=== PATIENT | female | born 2000 | race Caucasian/White ===

== ENCOUNTER 2022-01-31 08:41 | Inpatient (IN) | payer MEDICAID, OTHER ==
[2022-01-31] VITALS (26 sets, daily range): BP systolic 120–161; BP diastolic 60–92
[~2022-01-31] VITALS: Ht 157.5 cm; Wt 56.8 kg
[2022-01-31] MEDS ORDERED: PNV-9 PO (09:52)
--- NOTE | 2022-01-31 11:51 | Diagnostic Imaging Report ---
INDICATION: Evaluate position. TECHNIQUE: Multiple real-time grayscale images were obtained over the gravid uterus. COMPARISON: None FINDINGS: There is a single live fetus in a cephalic presentation. heart rate was recorded at 134 bpm. Placenta is fundal. Amniotic fluid index is 7.6 cm. Biometrical measurements are as follows: Biparietal 9.01 cm, age 36 weeks 4 days. Head circumference 30.98 cm, age 34 weeks 5 days. Abdominal circumference 34.65 cm, age 38 weeks 4 days. Femur length 6.49 cm, age 33 weeks 4 days. Sonographic estimate age: 35 weeks 6 days. Sonographic estimated date of delivery: 03/01/2022. Estimated Weight: 3011 gm (+/- 440 gm). LMP percentile: --%. heart rate: 134 beats per minute. number: 1 of 1. IMPRESSION: Single live IUP approximately 36 weeks gestational age. Fetus is cephalic. Dictated by: Dictated on workstation # [id number]
--- NOTE | 2022-01-31 14:00 | History & Physical ---
History and Physical Date Seen by Provider: Jan 31, 2022 Time Seen by Provider: 08:15 Patient is a 21-year-old at least 2 para 1 female who presents in advanced labor writhing in pain with history of care apparently in [place]. Patient refuses cervical exam. Patient refuses IV. Patient refuses any lab work. Patient refuses visual inspection of the perineum or evidence of imminent delivery. I asked the physician on-call and with her having no local provider I was called to see the patient. Patient was in room 20 on the labor floor. She was in the bed obviously uncomfortable with contractions. She refused my care. She refused exam. She refused pain medication.. She preferred simple observation to any type of management. She is aware that I cannot be of much assistance without being able to assess her status or progress in labor. She understood that an emergency we would be handicapped by not having IV access and she was okay with that. We allowed her to labor. Allergies are to ibuprofen and latex Medications are unknown as patient would not state Medical social and surgical history is are unknown although we are attempting to obtain her records from [place] Social history patient is accompanied on this visit by a male partner Family history is unknown Physical exam is deferred. Patient generally is a thin but well-developed white female she is in acute distress with contractions. No other exam was allowed by the patient Assessment and plan My best assessment patient was at or near 40 weeks gestation. Apparently this was based on a 30-week ultrasound. Patient had planned delivery in [place] however she was in this area whenever she experienced acute labor. Is uncertain whether she experienced rupture membranes or not. Report is that she was seen last evening at [facility] with complaint of rupture membranes. Apparently their assessment there was negative however patient did not allow them to check her cervix or do any other particular work-up. Our plan was to observe be available for supportive care be available for [facility] care and hope for good outcome for the patient 40-week in labor Allergies and Home Medications Allergies Coded Allergies: ibuprofen (Verified Allergy, Unknown, 01/31/22) latex (Verified Allergy, Unknown, 01/31/22) Patient Home Medication List Home Medication List Reviewed: No Pnv 119/Iron Fum/Folic Acid ( 19 Tablet) 29 Mg Iron-1 Mg Tablet, 1 EACH PO DAILY, (Reported) Entered as Reported by: Donna Mckeon on 01/31/22 0952 Last Action: New Order CHARLI QUINN MD Jan 31, 2022 14:00
--- NOTE | 2022-01-31 14:05 | Discharge Inst-Surgical ---
Discharge Inst-Surgical Depart Medication/Instructions New, Converted or Re-Newed RX: Other Consults/Follow Up Orders & Referrals Follow Up Appt: Call to make follow up appt. for patient in 6 weeks with PCP Activity Per routine post vaginal delivery instructions. May use own [id number] Tylenol for as needed pain Diet as tolerated Patient may shower or tub bathe as desired. Activity Activity as Tolerated: No Diet Discharge Diet: No Restrictions CHARLI QUINN MD Jan 31, 2022 14:05
[2022-01-31] MEDS: ACETAMINOPHEN 500 MG TAB (TYLENOL) PO SCH ×2 (15:23→21:01)
[2022-01-31] MEDS ORDERED: WITCH HAZEL(TUCKS) 40 EA JAR TOP PRN (15:45)
[2022-01-31] MEDS ORDERED: BENZOCAINE/MENTHOL (DERMOPLAST) 56 ML CAN TP PRN (15:45)
[2022-02-01 00:15] VITALS: BP 120/81
--- NOTE | 2022-02-01 01:55 | OPERATIVE REPORT ---
DATE OF SERVICE: 01/31/2022 DELIVERY NOTE The patient delivered by term spontaneous vaginal delivery a viable female infant with Apgars that are pending, weight that is pending, cord blood pH was 7.33 and a time of 12:56. The was delivered over an intact perineum under no analgesia. The infant was bulb suctioned on completion of delivery. The umbilical cord was doubly clamped, the father cut the cord, the baby was passed to mom's abdomen. The placenta delivered spontaneously grimes. It was normal with a 3-vessel cord. Visual inspection of the vagina, introitus and perineum revealed no defects. The patient would not allow physical exam, did not allow her body to be touched. Vaginal exam could not be performed or completed due to patient refusal. My impression is that the baby was delivered over an intact perineum. As there was no blood present on the perineum immediately after delivery and no blood immediately prior to the placenta delivering, which would be consistent with an intact perineum. The placenta was sent to pathology for permanent section. Cord bloods were obtained prior to delivery of the placenta. Sponge and needle counts were correct on completion of delivery. Blood loss was around 300 to 400 mL. This was hard to interpret as patient would not allow an exam and was very uncooperative and almost combative with uterine massage and attempts at cleaning up and collecting the blood that was being lost. I did have the impression blood loss was typical average and normal for a vaginal delivery. Job ID: [id number] DocumentID: [id number] Dictated Date: 01/31/2022 13:38:33 Security Inspector Date: 02/01/2022 00:34:07 Dictated By: CHARLI QUINN MD MTDD
[2022-02-01 03:32] VITALS: BP 131/81
[2022-02-01] MEDS: ACETAMINOPHEN 500 MG TAB (TYLENOL) PO SCH ×4 (03:32→21:01)
[2022-02-01 08:15] VITALS: BP 118/80
--- NOTE | 2022-02-01 09:57 | Progress Note ---
Standard Progress Note Progress Notes/Assess & Plan Date Seen by a Provider: Feb 01, 2022 Time Seen by a Provider: 09:55 Progress/Assessment & Plan This patient is without complaint other than cramps. She reports that the cramps are worse when breast-feeding or when ambulating. Patient given a history of allergy to ibuprofen however she does take Motrin Advil [id number]. She is not allergic to ibuprofen she was told to not take that while she was and therefore listed as an allergy. She has taken ibuprofen without problems in the past so we will prescribe that for her now for her cramps and pain. Patient denies chest pain, shortness of breath, headache, nausea and vomiting. Vital Signs Date Time Temp Pulse Resp B/P (MAP) Pulse Ox O2 Delivery O2 Flow Rate FiO2 02/01/22 08:15 37.0 97 18 118/80 (93) 98 Room Air 02/01/22 03:32 37.1 110 18 131/81 (98) 96 Room Air 02/01/22 00:15 36.7 96 18 120/81 (94) 97 Room Air 01/31/22 21:00 36.8 99 16 123/80 (94) 98 Room Air 01/31/22 16:15 101 18 125/81 (96) Room Air 01/31/22 16:00 104 18 137/75 (95) Room Air 01/31/22 15:45 108 18 141/72 (95) Room Air 01/31/22 15:30 104 18 142/71 (94) Room Air 01/31/22 15:15 103 18 120/60 (80) Room Air 01/31/22 15:00 98 18 130/67 (88) Room Air 01/31/22 14:45 96 18 135/86 (102) Room Air 01/31/22 14:30 36.7 96 18 133/83 (100) Room Air 01/31/22 14:15 104 18 121/71 (88) Room Air 01/31/22 14:00 99 18 132/76 (94) Room Air 01/31/22 13:30 99 18 122/64 (83) Room Air 01/31/22 13:15 110 18 127/84 (98) Room Air 01/31/22 12:45 Non Rebreather 15.00 01/31/22 12:30 116 20 142/82 (102) Non Rebreather 15.00 01/31/22 12:15 113 20 143/82 (102) Non Rebreather 15.00 01/31/22 12:00 109 20 161/89 (113) Non Rebreather 12.00 01/31/22 11:45 103 20 143/87 (105) Non Rebreather 15.00 01/31/22 11:30 107 20 147/92 (110) Non Rebreather 10.00 01/31/22 11:15 105 20 148/76 (100) Non Rebreather 15.00 01/31/22 11:00 107 20 147/92 (110) Non Rebreather 12.00 01/31/22 10:45 106 20 140/86 (104) Non Rebreather 10.00 01/31/22 10:30 108 20 139/71 (93) Non Rebreather 10.00 01/31/22 10:15 113 20 133/77 (95) Non Rebreather 10.00 01/31/22 10:07 36.4 Vital signs are stable. Patient is afebrile. Physical exam is benign. Extremities show no clubbing or cyanosis. There is no Homans' sign. Assessment and plan day #1 status post term spontaneous vaginal delivery presumably at 40 weeks gestation. Patient is doing well and will have routine convalescent care Final Diagnosis 40-week spontaneous vaginal CHARLI QUINN MD Feb 01, 2022 09:57
[2022-02-01 12:05] VITALS: BP 123/78
[2022-02-01] MEDS: IBUPROFEN 800 MG (MOTRIN) TAB PO SCH ×2 (12:09→18:28)
[2022-02-01] MEDS: PREPARATION H OINTMENT 57 GR TUBE PR PRN ×2 (12:10→21:03)
[2022-02-01 16:00] VITALS: BP 120/76
[2022-02-01 20:57] VITALS: BP 105/63
[2022-02-01] MEDS: HYDROCORTISONE 2.5% CREAM (ANUSOL-HC) 30 GM TOP SCH (21:41)
[2022-02-02] MEDS: IBUPROFEN 800 MG (MOTRIN) TAB PO SCH ×2 (00:12→09:17)
[2022-02-02 03:28] VITALS: BP 97/51
[2022-02-02] MEDS: ACETAMINOPHEN 500 MG TAB (TYLENOL) PO SCH ×2 (03:33→09:43)
--- NOTE | 2022-02-02 07:01 | Progress Note ---
Standard Progress Note Progress Notes/Assess & Plan Date Seen by a Provider: Feb 02, 2022 Time Seen by a Provider: 07:00 Progress/Assessment & Plan This patient is without complaint other than cramps. She reports that the cramps are worse when breast-feeding or when ambulating. Patient given a history of allergy to ibuprofen however she does take Motrin Advil [id number]. She is not allergic to ibuprofen she was told to not take that while she was and therefore listed as an allergy. She has taken ibuprofen without problems in the past so we will prescribe that for her now for her cramps and pain. Patient denies chest pain, shortness of breath, headache, nausea and vomiting. Vital Signs Date Time Temp Pulse Resp B/P (MAP) Pulse Ox O2 Delivery O2 Flow Rate FiO2 02/01/22 08:15 37.0 97 18 118/80 (93) 98 Room Air 02/01/22 03:32 37.1 110 18 131/81 (98) 96 Room Air 02/01/22 00:15 36.7 96 18 120/81 (94) 97 Room Air 01/31/22 21:00 36.8 99 16 123/80 (94) 98 Room Air 01/31/22 16:15 101 18 125/81 (96) Room Air 01/31/22 16:00 104 18 137/75 (95) Room Air 01/31/22 15:45 108 18 141/72 (95) Room Air 01/31/22 15:30 104 18 142/71 (94) Room Air 01/31/22 15:15 103 18 120/60 (80) Room Air 01/31/22 15:00 98 18 130/67 (88) Room Air 01/31/22 14:45 96 18 135/86 (102) Room Air 01/31/22 14:30 36.7 96 18 133/83 (100) Room Air 01/31/22 14:15 104 18 121/71 (88) Room Air 01/31/22 14:00 99 18 132/76 (94) Room Air 01/31/22 13:30 99 18 122/64 (83) Room Air 01/31/22 13:15 110 18 127/84 (98) Room Air 01/31/22 12:45 Non Rebreather 15.00 01/31/22 12:30 116 20 142/82 (102) Non Rebreather 15.00 01/31/22 12:15 113 20 143/82 (102) Non Rebreather 15.00 01/31/22 12:00 109 20 161/89 (113) Non Rebreather 12.00 01/31/22 11:45 103 20 143/87 (105) Non Rebreather 15.00 01/31/22 11:30 107 20 147/92 (110) Non Rebreather 10.00 01/31/22 11:15 105 20 148/76 (100) Non Rebreather 15.00 01/31/22 11:00 107 20 147/92 (110) Non Rebreather 12.00 01/31/22 10:45 106 20 140/86 (104) Non Rebreather 10.00 01/31/22 10:30 108 20 139/71 (93) Non Rebreather 10.00 01/31/22 10:15 113 20 133/77 (95) Non Rebreather 10.00 01/31/22 10:07 36.4 Vital signs are stable. Patient is afebrile. Physical exam is benign. Extremities show no clubbing or cyanosis. There is no Homans' sign. Assessment and plan day #1 status post term spontaneous vaginal delivery presumably at 40 weeks gestation. Patient is doing well and will have routine convalescent care February 02, 2022 Patient is without complaint. She is ambulating, voiding, tolerating oral intake well has good pain control. Vital Signs Date Time Temp Pulse Resp B/P (MAP) Pulse Ox O2 Delivery O2 Flow Rate FiO2 02/02/22 03:28 36.5 99 16 97/51 (66) 96 Room Air 02/01/22 20:57 37.2 103 18 105/63 (77) 96 Room Air 02/01/22 16:00 36.9 87 16 120/76 (91) 98 Room Air 02/01/22 12:05 36.9 91 18 123/78 (93) 97 Room Air 02/01/22 08:15 37.0 97 18 118/80 (93) 98 Room Air Vital signs are stable. Patient is afebrile. The abdomen is benign. The fundus is firm below the umbilicus and nontender. Extremities show no clubbing or cyanosis. There is no Homans' sign. Assessment and plan day #2 status post term spontaneous vaginal delivery doing well. Plan is for discharge home with follow-up in clinic. Patient will remain and if baby is not discharged CHARLI QUINN MD Feb 02, 2022 07:01
[2022-02-02 09:15] VITALS: BP 110/60
[2022-02-02] MEDS: HYDROCORTISONE 2.5% CREAM (ANUSOL-HC) 30 GM TOP SCH (09:18)
[2022-02-02 12:00] VITALS: BP 110/60
== END 2022-02-02 12:18 | disposition home or self-care (01) | DRG 807 ==
LOC: LDRP 08:41 → WSo 08:41 → LDRP 09:25
PROVIDERS: ADMIT Obstetrics & Gynecology; ATTEND Obstetrics & Gynecology
PROC: 10E0XZZ Delivery of Products of Conception, External Approach (ICD-10-PCS; principal; 2022-01-31)
DX: O80 Encounter for full-term uncomplicated delivery (principal); Z37.0 Single live birth; Z3A.40 40 weeks gestation of pregnancy
CPT/HCPCS: 76805

== ENCOUNTER 2023-02-24 11:01 | Outpatient (CLI) | payer MEDICAID ==
[~2023-02-24] VITALS: Ht 157.5 cm; Wt 58.0 kg
[~2023-02-24 11:01] MED LIST: PNV-9 PO
[2023-02-24 11:30] VITALS: BP 128/89
[2023-02-24 11:40] VITALS: BP 128/89
[2023-02-24 11:47] LABS: BACTERIA,URINE FEW /HPF; BILIRUBIN,URINE NEGATIVE (NEGATIVE); CLARITY,URINE SLIGHTLY CLOUDY; COLOR,URINE YELLOW; GLUCOSE, URINE (UA) NEGATIVE (NEGATIVE); KETONES,URINE NEGATIVE (NEGATIVE); LEUKOCYTE ESTERASE ,URINE 2+ (NEGATIVE); NITRITE,URINE NEGATIVE (NEGATIVE); PH,URINE 8.5 (5-9); PROTEIN,URINE NEGATIVE (NEGATIVE)
[2023-02-24] MEDS ORDERED: AMOXICILLIN 500 MG CAPSULE PO NR (13:30)
[2023-02-24 15:05] VITALS: BP 111/72
[2023-02-24 18:10] VITALS: BP 119/79
[2023-02-24] MEDS ORDERED: AMOX500C2 PO (18:33)
[2023-02-24 18:40] VITALS: BP 119/79
--- NOTE | 2023-02-25 08:24 | Physician Query-Final Dx ---
TAISHA,02/25/23 0824: Clinic Account Progress/Dx Physician Query: Please give diagnosis Please include # weeks gestation Date of Service Feb 24, 2023 at 11:01 COLLETTE MORRISON MD 02/25/23 1127: Clinic Account Progress/Dx DIAGNOSIS: Diagnosis Third trimester 35 weeks gestation Contractions without cervical change Suspected UTI TAISHA,AprFeb 25, 2023 08:24 COLLETTE MORRISON MD Feb 25, 2023 11:27
== END 2023-02-24 18:40 | disposition home or self-care (01) ==
LOC: LDRP 11:01 → WSo 11:01
PROVIDERS: ATTEND Family Medicine
DX: O42.913 Preterm premature rupture of membranes, unspecified as to length of time between rupture and onset of labor, third trimester (principal); Z3A.35 35 weeks gestation of pregnancy
CPT/HCPCS: 81000; 84112; 87088; 99214

== ENCOUNTER 2023-03-03 12:09 | Outpatient (CLI) | payer MEDICAID ==
[~2023-03-03] VITALS: Ht 157.5 cm; Wt 58.4 kg
[~2023-03-03 12:09] MED LIST changes: +AMOX500C2 PO
[2023-03-03 12:20] VITALS: BP 117/69
--- NOTE | 2023-03-04 09:25 | Physician Query-Final Dx ---
TAISHA,03/04/23 0925: Clinic Account Progress/Dx Physician Query: Please give diagnosis Please include # weeks gestation Date of Service Mar 03, 2023 at 12:09 JOHANNA GONZALEZ DO 03/07/23 0958: Clinic Account Progress/Dx DIAGNOSIS: Diagnosis 36w6d vaginal discharge TAISHA,AprMar 04, 2023 09:25 JOHANNA GONZALEZ DO Mar 07, 2023 09:58
== END 2023-03-03 14:15 | disposition home or self-care (01) ==
LOC: LDRP 12:09 → WSo 12:09
PROVIDERS: ATTEND Family Medicine
DX: O34.63 Maternal care for abnormality of vagina, third trimester (principal); Z3A.36 36 weeks gestation of pregnancy
CPT/HCPCS: 99213